=== PATIENT | female | born 1935 | race Caucasian/White ===

== ENCOUNTER → 2023-11-10 12:52 | Outpatient (REF) | payer OTHER, SELFPAY | LOC: HWRCS 12:52 | PROVIDERS: ATTENDING PHYSICIAN Physician Assistant; FAMILY PHYSICIAN Internal Medicine | DX: I50.32 Chronic diastolic (congestive) heart failure (principal); I10 Essential (primary) hypertension; I35.1 Nonrheumatic aortic (valve) insufficiency | CPT/HCPCS: 93306 ==

== ENCOUNTER → 2024-01-11 13:08 | Outpatient (REF) | payer OTHER, SELFPAY | LOC: RAD 13:08 | PROVIDERS: ATTENDING PHYSICIAN Physician Assistant Medical; FAMILY PHYSICIAN Internal Medicine | DX: I67.2 Cerebral atherosclerosis (principal) | CPT/HCPCS: 93880 ==

== ENCOUNTER → 2024-10-18 13:31 | Outpatient (REF) | payer OTHER, SELFPAY | LOC: HWWDC 13:31 | PROVIDERS: ATTENDING PHYSICIAN Internal Medicine | DX: Z12.31 Encounter for screening mammogram for malignant neoplasm of breast (principal) | CPT/HCPCS: 77063; 77067 ==

== ENCOUNTER 2025-01-11 13:18 | Emergency (ER) | payer OTHER, SELFPAY ==
[2025-01-11 13:30] VITALS: BP 126/62
[2025-01-11 14:09] LABS: ALT (SGPT) 14 U/L (0-35); AST (SGOT) 23 U/L (14-36); Albumin 4.5 g/dl (3.5-5.0); Alkaline Phosphatase 89 U/L (38-126); Blood Urea Nitrogen 22 mg/dl (7-17); Calcium 9.1 mg/dl (8.4-10.2); Carbon Dioxide 28 mmol/L (22-30); Chloride 99 mmol/L (98-107); Glucose 189 mg/dl (70-99); Potassium 4.0 mmol/L (3.5-5.1); Sodium 137 mmol/L (135-145); Total Protein 7.8 g/dl (6.3-8.2); eGFR 54.53
[2025-01-11 14:10] LABS: COVID-19 Antigen Positive (Negative)
--- NOTE | 2025-01-11 17:27 | ED.GENMED ---
History of Present Illness
General
Chief Complaint: Change in Mental Status
Source: patient and family
Exam Limitations: none
Time Seen by Provider: 01/11/25 16:33
Nursing documentation reviewed up to this point in time: agreed with
History of Present Illness
History of Present Illness:
89-year-old female past medical history of dementia, hypertension anxiety depression presenting to the emergency department today with concerns of increased confusion some mild upper respiratory symptoms confusion started about a week ago has been
ongoing does not history of dementia but this is somewhat worse than usual. Also was found on the floor this morning she claims she remembers that she slowly lowered herself to the floor denies any discomfort or any fall. Also had some mild upper
respiratory symptoms started over the last day or so.
Past History
Past History
ED Past Medical History: HTN, Psychiatric and Other (glaucoma)
ED Past Surgical History: Gynecological
Social History
Tobacco: Non-smoker
Alcohol: None
Drug: None
Living: with family
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
Family History
Family History: Other (No significant)
Review of Systems
Review of Systems
Allergies reviewed?: Yes
All Other Systems: ROS reviewed and negative except as documented in HPI and ROS
Phy Exam
Physical Exam
Physical Exam:
GENERAL: Alert , in no apparent distress
EYE: pupils equal and reactive
NECK: Supple, no significant adenopathy.
ENT: o/p clr, mmm.
CARDIAC: Regular rate and rhythm .
LUNGS: Clear breath sounds bilaterally, no acute respiratory distress, no wheezes/rales/rhonchi
ABDOMEN: Soft, without focal tenderness, no r/g, no cvat
NEUROLOGICAL: Alert and oriented, no focal neuro deficits
SKIN: Warm and dry, skin intact.
MUSCULOSKELETAL: No edema, well perfused.
PSYCH: Normal and appropriate interaction.
Course
Orders/Labs/Results
Orders:
Orders
01/11/25 13:44
COVID-19 Antigen Urgent
Source: Nasal Swab
01/11/25 13:49
Comprehensive Metabolic Panel Urgent
01/11/25 18:09
Complete Blood Count/With Diff Urgent
Urinalysis Reflex To Culture Urgent
Date Specimen was Collected: 01/11/25
Time Specimen was Collected: 17:14
Urine Microscopic Reflex Cult Urgent
Urine Culture Urgent
MONY Source: U
Specimen Description:
Date Specimen was Collected: 01/11/25
Time Specimen was Collected: 17:14
01/11/25 18:37
CT Head W/o Iv Contrast Urgent
Comment:
Reason For Exam: fall, unknonw head trauma hx dementia COVID+
Abnormal Lab Results
01/11/25 01/11/25 01/11/25
13:44 13:49 18:09
WBC 12.0 H 10^3/uL
(4.8-10.8)
Hct 35.8 L %
(37.0-47.0)
MPV 10.6 H fL
(7.4-10.4)
Absolute Neuts (auto) 9.4 H 10^3/uL
(1.4-6.5)
Absolute Monos (auto) 1.2 H 10^3/uL
(0.1-0.6)
Neutrophils % 77.8 H %
(42.2-75.2)
Lymphocytes % 10.3 L %
(20.5-51.1)
Monocytes % 10.3 H %
(1.7-9.3)
BUN 22 H mg/dl
(7-17)
Glucose 189 H mg/dl
(70-99)
Leukocyte Esterase Rfl 1+ A
(Negative)
Urine WBC (Reflex) 21-25 A /HPF
(0-5)
Urine Bacteria (Reflex) Moderate A
(Negative)
Urine Albumin (Reflex) 1+ A
(Neg - Trace)
SARS-CoV-2 Antigen Positive A
(Negative)
01/11/25 18:09
01/11/25 13:49
Vital Signs
Initial and Last Documented VS:
Initial Vital Signs
Temp Pulse Resp BP Pulse Ox
98.2 F 79 18 126/62 95
01/11/25 13:30 01/11/25 13:30 01/11/25 13:30 01/11/25 13:30 01/11/25 13:30
Last Documented Vital Signs
Temp Pulse Resp BP Pulse Ox
98.2 F 72 16 145/52 95
01/11/25 13:30 01/11/25 19:29 01/11/25 19:29 01/11/25 19:29 01/11/25 19:29
MDM/Problems Addressed
MDM/Problems Addressed:
89-year-old female presenting to the emergency department today with concerns of altered mental status confusion over the past week or so does of a history of dementia. Has a mild upper respiratory syndrome as well over the past day or so.
Positive for COVID here. Vital signs normal neurologic examination normal lungs are clear slight inflammation of the posterior pharynx but no significant swelling otherwise. Patient otherwise here labs without emergent findings CT scan without
emergent findings urinalysis not likely consistent with UTI. Stable for outpatient management of COVID. Return precautions given.
*Pulse Oximetry
SaO2: 95
Oxygen Mode of Delivery: Room air
Patient hypoxic: no (95)
*Critical Care Note
Total Time (30-74mins, 75-104mins- exclusive of procedures): Not Applicable
ED Attending Note
-
Portions of this chart may have been created with voice recognition software.� Occasional wrong word or��sound alike� substitutions may have occurred due to the inherent limitations of voice recognition software.
Discharge Plan
Departure
Patient Disposition: Home (Routine Discharge)
Date of Disposition: 01/11/25
Time of Disposition: 21:22
Patient with high blood pressure during this ER visit?: No
Condition: Good
Covid-19: Not Applicable
Discharge Problem:
COVID-19
Instructions: COVID-19 in adults - Discharge instructions
Prescriptions:
No Action
latanoprost 1 DROP drops
1 drp BOTH EYES HS
olanzapine 2.5 MG tablet
1.25 mg PO HS
zolpidem 10 MG tablet
10 mg PO HSPRN PRN (Reason: SLEEP)
rosuvastatin 10 MG tablet
10 mg PO Q48H
glimepiride 1 mg Tablet
1 mg PO DAILY
aspirin 81 mg Capsule,Delayed Release(Dr/Ec)
81 mg PO DAILY
sertraline 50 mg Tablet
50 mg PO DAILY
hydralazine 10 mg Tablet
10 mg PO BID Qty: 0 0RF
miconazole nitrate [Miconazorb AF] 2 % Powder
1 applic topical BID Qty: 0 0RF
furosemide 40 mg Tablet
40 mg PO DAILY Qty: 0 0RF
alprazolam 0.25 MG tablet
0.5 mg PO HS Qty: 3 0RF
Referrals:
Wayne Perez MD [Family Provider, Internal Medicine]
Activity Restrictions/Additional Instructions:
You came to the emergency department today with concerns of confusion and altered mental status. You are found to have COVID. Please make sure you stay hydrated get plenty of rest over the next few days. Return for any worsening, new or
concerning symptoms.
Interventions
Interventions:
*Risk Screen - Suicide Last Done: 01/11/25 13:35
*General Assessment Last Done: 01/11/25 13:35
*Neglect/Abuse Screening Last Done: 01/11/25 16:31
*ED- Fall Risk Assessment Last Done: 01/11/25 16:31
*ED COVID-19 Vaccine History Last Done: 01/11/25 13:35
ED- Cardiac Assessment Last Done: 01/11/25 19:28
ED- Neurological Assessment Last Done: 01/11/25 19:21
ED- Pulmonary Assessment Last Done: 01/11/25 19:28
Discharge Date and Time
Print Language: [id number]
[2025-01-11 18:29] LABS: Urine Character Clear (Clear)
[2025-01-11 18:55] LABS: Hematocrit 35.8 % (37.0-47.0); Hemoglobin 12.2 g/dL (12.0-16.0); Mean Corp Hgb Conc. 34.1 g/dL (33.0-37.0); Mean Corpuscular Volume 82.1 fL (81.0-99.0); Nucleated Red Blood Cells % 0 %; Platelet Count 274 10^3/uL (130-400); Red Cell Dist. Width 13.3 % (11.5-14.5)
[2025-01-11 19:07] LABS: Urine Red Blood Cell 0-2 /HPF (0-2); Urine Squamous Cell 16-20 /LPF (Few); Urine Urothelial Cell 0-2 /LPF (FEW); Urine White Cell 21-25 /HPF (0-5)
[2025-01-11 19:29] VITALS: BP 145/52
[2025-01-11 21:50] VITALS: BP 136/49
== END 2025-01-11 21:51 | disposition home or self-care (01) ==
LOC: EMR 13:18
PROVIDERS: Emergency Medicine; Physician Assistant; EMERGENCY PHYSICIAN Emergency Medicine; FAMILY PHYSICIAN Internal Medicine
DX: U07.1 COVID-19 (principal); I10 Essential (primary) hypertension; F03.90 Unspecified dementia, unspecified severity, without behavioral disturbance, psychotic disturbance, mood disturbance, and anxiety
CPT/HCPCS: 99284; 70450; 80053; 81003; 81015; 85025; 87086; 87811

== ENCOUNTER → 2025-05-16 12:54 | Outpatient (REF) | payer OTHER, SELFPAY | LOC: RAD 12:54 | PROVIDERS: ATTENDING PHYSICIAN Physician Assistant Medical; FAMILY PHYSICIAN Internal Medicine; OTHER PHYSICIAN Specialist | DX: I67.2 Cerebral atherosclerosis (principal) | CPT/HCPCS: 93880 ==